=== PATIENT | male | born 1960 | race Caucasian/White ===

== ENCOUNTER 2017-06-06 12:04 | Emergency (ER) | payer MEDICAID ==
[~2017-06-06] VITALS: Ht 175.3 cm; Wt 62.1 kg
[2017-06-06 12:20] VITALS: BP 101/63
[2017-06-06] MEDS ORDERED: DIAZEPAM 5 MG TABLET PO ONE (13:00)
[2017-06-06] MEDS ORDERED: KETOROLAC 30 MG/1 ML IM ONE (13:00)
[2017-06-06] MEDS ORDERED: DIAZEPAM 5 MG TABLET ONE (13:11)
[2017-06-06] MEDS ORDERED: KETOROLAC 30 MG/1 ML ONE (13:12)
== END 2017-06-06 14:02 | disposition home or self-care (01) ==
LOC: ED 13:22
DX: S39.012A Strain of muscle, fascia and tendon of lower back, initial encounter (principal); W19.XXXA Unspecified fall, initial encounter; Y93.89 Activity, other specified; Y92.89 Other specified places as the place of occurrence of the external cause; Y99.8 Other external cause status
CPT/HCPCS: 96372; 99283; J1885

== ENCOUNTER 2017-11-06 10:19 | Inpatient (IN) | payer MEDICAID ==
[~2017-11-06] VITALS: Ht 175.3 cm; Wt 60.2 kg
[2017-11-06] MEDS ORDERED: SODIUM CHLORIDE 0.9% 1,000ML IVBOLUS ONE ×4 (12:00→15:00)
[2017-11-06 12:13] LABS: MEAN CORPUSCULAR HEMOGLOBIN 29.8 pg (27.5-34.5); MEAN CORPUSCULAR HGB CONC 33.5 g/dL (33.2-36.2); MEAN CORPUSCULAR VOLUME 88.9 fL (81-97); MEAN PLATELET VOLUME 7.2 fL (7.4-10.4); PLATELET COUNT 212 x10^3/uL (130-400); RED BLOOD COUNT 4.61 x10^6/uL (4.38-5.82); RED CELL DISTRIBUTION WIDTH 14.9 % (9.4-14.8)
[2017-11-06 12:25] LABS: ANION GAP 6 mmol/L (5-15); CALCIUM 8.6 mg/dL (8.5-10.1); CHLORIDE 98 mmol/L (98-107)
[2017-11-06 12:26] LABS: CREATININE 1.07 mg/dL (0.7-1.3)
[2017-11-06] MEDS ORDERED: AZITHROMYCIN 500 MG in SODIUM CHLORIDE 0.9% 250 ML IV ONE (12:30)
[2017-11-06] MEDS ORDERED: CEFTRIAXONE PMX 1GM/50ML 50 ML IV ONE (12:30)
[2017-11-06 12:36] LABS: BASOPHILS # (AUTO) 0.05 x10^3/uL (0-0.1); BASOPHILS % (AUTO) 0 % (0-1); EOSINOPHILS # (AUTO) 0.02 x10^3/uL (0-0.4); EOSINOPHILS % (AUTO) 0 % (1-7); LYMPHOCYTES # (AUTO) 0.92 x10^3/uL (1-3.4); LYMPHOCYTES % (AUTO) 6 % (22-44); MD SCAN; MONOCYTES % (AUTO) 4 % (2-9); NEUTROPHILS # (AUTO) 14.77 x10^3/uL (1.8-6.8); NEUTROPHILS % (AUTO) 90 % (42-75)
[2017-11-06 12:59] LABS: RAPID INFLUENZA A Negative (Negative); RAPID INFLUENZA B Negative (Negative)
[2017-11-06] MEDS ORDERED: CEFTRIAXONE PMX 1GM/50ML 50 ML ONE (13:25)
[2017-11-06] MEDS: ENOXAPARIN 40 MG/0.4 ML SQ SCH (15:00)
[2017-11-06] MEDS: AZITHROMYCIN 500 MG in SODIUM CHLORIDE 0.9% 250 ML IV SCH (15:00)
[2017-11-06] MEDS: NICOTINE 14MG/24 HR PATCH.TD24 TD SCH (15:00)
[2017-11-06] MEDS ORDERED: ONDANSETRON 2MG/ML, 2ML IVPush PRN (15:00)
[2017-11-06] MEDS ORDERED: ONDANSETRON ODT 4 MG PO PRN (15:00)
[2017-11-06 15:32] VITALS: BP 95/59
[2017-11-06] MEDS: SODIUM CHLORIDE 0.9% 1,000 ML IV SCH (16:56)
[2017-11-06 19:54] VITALS: BP 95/59
[2017-11-06] MEDS ORDERED: ALBUTEROL SULFATE 2.5 MG/3 ML NPPB PRN (22:30)
[2017-11-07] MEDS: SODIUM CHLORIDE 0.9% 1,000 ML IV SCH ×3 (01:17→23:03)
[2017-11-07 01:22] VITALS: BP 93/56
[2017-11-07 04:58] LABS: BASOPHILS # (AUTO) 0.02 x10^3/uL (0-0.1); BASOPHILS % (AUTO) 0 % (0-1); EOSINOPHILS # (AUTO) 0.09 x10^3/uL (0-0.4); EOSINOPHILS % (AUTO) 1 % (1-7); LYMPHOCYTES # (AUTO) 1.79 x10^3/uL (1-3.4); LYMPHOCYTES % (AUTO) 16 % (22-44); MD NO; MEAN CORPUSCULAR HEMOGLOBIN 30.1 pg (27.5-34.5); MEAN CORPUSCULAR VOLUME 88.7 fL (81-97); MEAN PLATELET VOLUME 7.4 fL (7.4-10.4); MONOCYTES # (AUTO) 0.83 x10^3/uL (0.2-0.8); MONOCYTES % (AUTO) 7 % (2-9); NEUTROPHILS # (AUTO) 8.68 x10^3/uL (1.8-6.8); NEUTROPHILS % (AUTO) 76 % (42-75); PLATELET COUNT 198 x10^3/uL (130-400); RED BLOOD COUNT 3.91 x10^6/uL (4.38-5.82)
[2017-11-07 05:06] LABS: ALBUMIN 2.3 g/dL (3.4-5.0); ANION GAP 4 mmol/L (5-15); CALCIUM 7.7 mg/dL (8.5-10.1); CHLORIDE 109 mmol/L (98-107)
[2017-11-07 05:11] LABS: ALANINE AMINOTRANSFERASE 36 U/L (12-78); ALKALINE PHOSPHATASE 81 U/L (45-117); BILIRUBIN,TOTAL 0.7 mg/dL (0.2-1.0); CREATININE 0.87 mg/dL (0.7-1.3); TOTAL PROTEIN 6.2 g/dL (6.4-8.2)
[2017-11-07 07:55] VITALS: BP 76/50
[2017-11-07 08:17] VITALS: BP 81/55
[2017-11-07] MEDS ORDERED: SODIUM CHLORIDE 0.9%, 500ML IVBOLUS ONE (08:30)
[2017-11-07] MEDS: NEUTRA PHOS K 250 MG TABLET PO SCH ×3 (10:59→20:03)
[2017-11-07] MEDS: NICOTINE 14MG/24 HR PATCH.TD24 TD SCH (12:43)
[2017-11-07 13:04] VITALS: BP 77/46
[2017-11-07] MEDS: CEFTRIAXONE PMX 1GM/50ML 50 ML IV SCH (14:32)
[2017-11-07] MEDS: ENOXAPARIN 40 MG/0.4 ML SQ SCH (15:00)
[2017-11-07 15:31] VITALS: BP 92/61
[2017-11-07] MEDS: AZITHROMYCIN 500 MG in SODIUM CHLORIDE 0.9% 250 ML IV SCH (15:33)
[2017-11-07] MEDS ORDERED: PNEUMOCOCCAL 23 VACCINE IM-VACC ONE (16:30)
[2017-11-07] MEDS ORDERED: FLU VACC QS2017-18 (36MOS+) UP/PF 0.5 ML IM-VACC ONE (16:30)
[2017-11-07 19:14] VITALS: BP 100/61
[2017-11-07] MEDS: ACETAMINOPHEN 325 MG TABLET PO PRN (23:08)
[2017-11-08 02:50] VITALS: BP 92/52
[2017-11-08 05:15] LABS: ANION GAP 6 mmol/L (5-15); CALCIUM 7.9 mg/dL (8.5-10.1); CHLORIDE 110 mmol/L (98-107); CREATININE 0.76 mg/dL (0.7-1.3)
[2017-11-08 05:19] LABS: BASOPHILS # (AUTO) 0.03 x10^3/uL (0-0.1); BASOPHILS % (AUTO) 0 % (0-1); EOSINOPHILS # (AUTO) 0.35 x10^3/uL (0-0.4); EOSINOPHILS % (AUTO) 5 % (1-7); LYMPHOCYTES # (AUTO) 1.63 x10^3/uL (1-3.4); LYMPHOCYTES % (AUTO) 24 % (22-44); MD NO; MEAN CORPUSCULAR HEMOGLOBIN 29.9 pg (27.5-34.5); MEAN CORPUSCULAR HGB CONC 33.2 g/dL (33.2-36.2); MEAN CORPUSCULAR VOLUME 90.1 fL (81-97); MEAN PLATELET VOLUME 7.4 fL (7.4-10.4); MONOCYTES # (AUTO) 0.77 x10^3/uL (0.2-0.8); MONOCYTES % (AUTO) 11 % (2-9); NEUTROPHILS # (AUTO) 4.12 x10^3/uL (1.8-6.8); NEUTROPHILS % (AUTO) 60 % (42-75); PLATELET COUNT 246 x10^3/uL (130-400); RED BLOOD COUNT 3.91 x10^6/uL (4.38-5.82); RED CELL DISTRIBUTION WIDTH 15.4 % (9.4-14.8)
[2017-11-08] MEDS: SODIUM CHLORIDE 0.9% 1,000 ML IV SCH ×2 (06:28→21:22)
[2017-11-08 06:40] VITALS: BP 112/57
[2017-11-08 12:15] VITALS: BP 100/60
[2017-11-08] MEDS: CEFTRIAXONE PMX 1GM/50ML 50 ML IV SCH (14:26)
[2017-11-08] MEDS: NICOTINE 14MG/24 HR PATCH.TD24 TD SCH (14:29)
[2017-11-08] MEDS: ENOXAPARIN 40 MG/0.4 ML SQ SCH (14:30)
[2017-11-08] MEDS: AZITHROMYCIN 500 MG in SODIUM CHLORIDE 0.9% 250 ML IV SCH (15:28)
[2017-11-08] MEDS ORDERED: maalox/diphenh/lido/sucralfate 5 ML PO PRN (17:30)
[2017-11-08 20:24] VITALS: BP 104/68
[2017-11-09 01:00] VITALS: BP 114/67
[2017-11-09] MEDS: ACETAMINOPHEN 325 MG TABLET PO PRN (02:16)
[2017-11-09 08:22] VITALS: BP 110/71
[2017-11-09] MEDS: SODIUM CHLORIDE 0.9% 1,000 ML IV SCH (08:38)
[2017-11-09] MEDS ORDERED: NICO-486 TD (09:39)
[2017-11-09] MEDS ORDERED: AZIT500T5 PO (09:39)
== END 2017-11-09 13:37 | disposition home or self-care (01) | DRG 871 ==
LOC: ED 12:51 → EDIP 13:53 → 3NE 15:21 → DCLOUNGE 11-09 13:26
PROVIDERS: ADMIT Internal Medicine Pulmonary Disease; ATTEND Internal Medicine Pulmonary Disease
DX: A41.9 Sepsis, unspecified organism (principal); J15.9 Unspecified bacterial pneumonia; E44.0 Moderate protein-calorie malnutrition; E83.39 Other disorders of phosphorus metabolism; E87.1 Hypo-osmolality and hyponatremia; D64.9 Anemia, unspecified; E86.0 Dehydration; F12.90 Cannabis use, unspecified, uncomplicated; F17.210 Nicotine dependence, cigarettes, uncomplicated; F15.90 Other stimulant use, unspecified, uncomplicated; I10 Essential (primary) hypertension; Z59.0 Homelessness; Z23 Encounter for immunization
CPT/HCPCS: 36415; 71045; 80048; 80053; 82533; 83605; 83735; 84100; 84145; 85025; 87040; 87070; 87186; 87205; 87400; 90686; 90732; 93005; 96361; 96365; J0456; J0696; J1650; J7030; J7040; J7050

== ENCOUNTER 2018-10-15 11:38 | Emergency (ER) | payer MEDICAID ==
[~2018-10-15] VITALS: Ht 175.3 cm; Wt 58.6 kg
[~2018-10-15 11:38] MED LIST: AZIT500T5 PO; NICO-486 TD
[2018-10-15 12:03] VITALS: BP 111/72
[2018-10-15] MEDS ORDERED: KETOROLAC 30 MG/1 ML IM ONE (12:30)
[2018-10-15] MEDS ORDERED: LORazepam 1MG TABLET PO ONE (12:30)
[2018-10-15] MEDS ORDERED: DIPH,PERTUSS(ACELL),TET VAC/PF 0.5 ML IM-VACC ONE ×2 (12:30→12:44)
[2018-10-15] MEDS ORDERED: LORazepam 1MG TABLET ONE (12:44)
[2018-10-15] MEDS ORDERED: KETOROLAC 30 MG/1 ML ONE (12:44)
[2018-10-15] MEDS ORDERED: BACITRACIN ZINC OINT 500U/GM, 0.9 GM ONE (12:48)
--- NOTE | 2018-10-15 13:33 | NUR ---
PT EDUCATED ON DISCHARGE INSTRUCTIONS, VERBALLY ACKNOWLEDGED UNDERSTANDING. PT AMBULATES WITH STEADY GAIT. PT ACCOMPANIED BY FRINED. PT SYMPTOMS IMPROVED AT THIS TIME.
== END 2018-10-15 13:35 | disposition home or self-care (01) ==
LOC: ED 13:15
DX: S61.232A Puncture wound without foreign body of right middle finger without damage to nail, initial encounter (principal); S61.231A Puncture wound without foreign body of left index finger without damage to nail, initial encounter; S39.012A Strain of muscle, fascia and tendon of lower back, initial encounter; F15.129 Other stimulant abuse with intoxication, unspecified; F12.929 Cannabis use, unspecified with intoxication, unspecified; M19.90 Unspecified osteoarthritis, unspecified site; F17.200 Nicotine dependence, unspecified, uncomplicated; W26.0XXA Contact with knife, initial encounter; Y93.89 Activity, other specified; Y92.009 Unspecified place in unspecified non-institutional (private) residence as the place of occurrence of the external cause; Y99.8 Other external cause status
CPT/HCPCS: 90471; 90715; 96372; 99283; J1885